=== PATIENT | male | born 1955 | race Caucasian/White ===

== ENCOUNTER 2017-06-15 06:48 | Inpatient (IN) | payer OTHER ==
[~2017-06-15] VITALS: Ht 172.7 cm; Wt 68.9 kg
[2017-06-15 08:19] LABS: HEMOGLOBIN 12.1 g/dL (13.7-18.0); WHITE BLOOD COUNT 4.6 x10^3/uL (3.4-10)
[2017-06-15 08:29] LABS: ASPARTATE AMINO TRANSFERASE 26 U/L (15-37); BLOOD UREA NITROGEN 17 mg/dL (7-18)
[2017-06-15] MEDS ORDERED: PANTOPRAZOLE 80 MG in SODIUM CHLORIDE 0.9% 50 ML IV ONE (08:30)
[2017-06-15] MEDS ORDERED: PANTOPRAZOLE 80 MG in SODIUM CHLORIDE 0.9% 100 ML IV SCH (08:30)
[2017-06-15] MEDS ORDERED: CEFTRIAXONE PMX 1GM/50ML 50 ML IV ONE (11:00)
[2017-06-15] MEDS ORDERED: AZITHROMYCIN 500 MG in SODIUM CHLORIDE 0.9% 250 ML IV ONE (11:00)
[2017-06-15] MEDS ORDERED: ONDANSETRON 2MG/ML, 2ML IVPush PRN (11:30)
[2017-06-15] MEDS ORDERED: morphine SULFATE 10 MG/ML, 1ML IVPush PRN (11:30)
[2017-06-15] MEDS ORDERED: OXYcodone/APAP 5/325MG TABLET PO PRN (11:30)
[2017-06-15] MEDS ORDERED: hydrALAzine 20 MG/ML, 1ML IVPush PRN (11:30)
[2017-06-15] MEDS ORDERED: CEFTRIAXONE PMX 1GM/50ML 50 ML ONE (11:45)
[2017-06-15 12:57] VITALS: BP 115/67
[2017-06-15] MEDS: NICOTINE 14MG/24 HR PATCH.TD24 TD SCH (13:00)
[2017-06-15] MEDS ORDERED: PANTOPRAZOLE 40 MG IV IVPush SCH (13:00)
[2017-06-15] MEDS: DOXYCYCLINE 100MG TABLET PO SCH ×2 (14:35→21:19)
[2017-06-15] MEDS: methylPREDNISolone SOD SUCC 125 MG/2 ML IVPush SCH ×2 (14:35→21:19)
[2017-06-15 20:00] VITALS: BP 133/74
[2017-06-15] MEDS: TEMAZEPAM 15 MG CAPSULE PO PRN (21:19)
[2017-06-15] MEDS: PANTOPRAZOLE 40 MG IV IVPush SCH (21:20)
[2017-06-16] MEDS ORDERED: CEFTRIAXONE PMX 2GM/50ML 50 ML IV SCH
[2017-06-16 02:00] VITALS: BP 124/73
[2017-06-16] MEDS: methylPREDNISolone SOD SUCC 125 MG/2 ML IVPush SCH ×3 (03:57→15:58)
[2017-06-16 05:18] LABS: HEMOGLOBIN 11.2 g/dL (13.7-18.0); WHITE BLOOD COUNT 3.7 x10^3/uL (3.4-10)
[2017-06-16 05:28] LABS: BLOOD UREA NITROGEN 18 mg/dL (7-18)
[2017-06-16 05:36] LABS: ASPARTATE AMINO TRANSFERASE 16 U/L (15-37)
[2017-06-16] MEDS ORDERED: ONDANSETRON 2MG/ML, 2ML ONE (06:49)
[2017-06-16] MEDS ORDERED: KETAMINE 10 MG/ML, 20ML ONE (06:49)
[2017-06-16] MEDS ORDERED: PROPOFOL 10 MG/ML, 20ML ONE (06:49)
[2017-06-16 06:55] VITALS: BP 120/64
[2017-06-16] MEDS ORDERED: ALBUTEROL SULFATE 2.5 MG/3 ML NPPB PRN (08:30)
[2017-06-16] MEDS ORDERED: HYDROmorphone 1 MG/ML, 1ML IV PRN (08:30)
[2017-06-16] MEDS ORDERED: hydrALAzine 20 MG/ML, 1ML IV PRN (08:30)
[2017-06-16] MEDS ORDERED: PROMETHAZINE 25 MG/ML, 1ML IV PRN (08:30)
[2017-06-16] MEDS ORDERED: ONDANSETRON 2MG/ML, 2ML IVPush PRN (08:30)
[2017-06-16] MEDS ORDERED: MIDAZOLAM 1 MG/ML, 2ML IV PRN (08:30)
[2017-06-16] MEDS ORDERED: FENTANYL PF 100 MCG/2ML IV PRN (08:30)
[2017-06-16] MEDS ORDERED: LABETALOL 5MG/ML, 20ML IV PRN (08:30)
[2017-06-16] MEDS ORDERED: OXYcodone 5 MG/5 ML ORAL.SOL UDC PO PRN (08:30)
[2017-06-16] MEDS ORDERED: MEPERIDINE/PF 25MG/0.5ML IVPush PRN (08:30)
[2017-06-16] MEDS: PANTOPRAZOLE 40 MG IV IVPush SCH (09:37)
[2017-06-16] MEDS: DOXYCYCLINE 100MG TABLET PO SCH ×2 (10:14→20:41)
[2017-06-16] MEDS: NICOTINE 14MG/24 HR PATCH.TD24 TD SCH (13:00)
[2017-06-16 13:29] VITALS: BP 122/71
[2017-06-16 20:00] VITALS: BP 126/70
[2017-06-16] MEDS: methylPREDNISolone SOD SUCC 40 MG/ML IVPush SCH (20:41)
[2017-06-16] MEDS: TEMAZEPAM 15 MG CAPSULE PO PRN (20:41)
[2017-06-17] MEDS: methylPREDNISolone SOD SUCC 40 MG/ML IVPush SCH ×4 (02:14→21:09)
[2017-06-17 03:45] VITALS: BP 115/62
[2017-06-17 05:57] LABS: HEMOGLOBIN 10.2 g/dL (13.7-18.0)
[2017-06-17 06:45] VITALS: BP 116/67
[2017-06-17] MEDS: DOXYCYCLINE 100MG TABLET PO SCH ×2 (08:09→21:09)
[2017-06-17] MEDS: PANTOPROZOLE 40MG TABLET PO SCH (08:09)
[2017-06-17] MEDS: NICOTINE 14MG/24 HR PATCH.TD24 TD SCH (13:00)
[2017-06-17] MEDS: CEFTRIAXONE 2,000 MG in DEXTROSE 5% 50 ML IV SCH (13:46)
[2017-06-17 20:00] VITALS: BP 113/65
[2017-06-17] MEDS: TEMAZEPAM 15 MG CAPSULE PO PRN (21:09)
[2017-06-18 02:00] VITALS: BP 110/60
[2017-06-18] MEDS: methylPREDNISolone SOD SUCC 40 MG/ML IVPush SCH ×2 (03:34→08:19)
[2017-06-18] MEDS ORDERED: OMEP-110 PO (07:43)
[2017-06-18] MEDS ORDERED: TRAM50TA2 PO (07:43)
[2017-06-18] MEDS ORDERED: TIOT18CA INH (07:43)
[2017-06-18] MEDS ORDERED: CEFD300C37 PO (07:43)
[2017-06-18] MEDS ORDERED: ALBU18HF INH (07:43)
[2017-06-18] MEDS ORDERED: NICO-486 TD (07:43)
[2017-06-18] MEDS ORDERED: PRED10TA14 PO (07:43)
[2017-06-18] MEDS ORDERED: FLUT1DIS IH (07:43)
[2017-06-18] MEDS ORDERED: MAGN400T26 PO (07:44)
[2017-06-18] MEDS ORDERED: DOXY100C15 PO (07:56)
[2017-06-18] MEDS ORDERED: POTASSIUM PHOSPHATE 44 MEQ in SODIUM CHLORIDE 0.9% 500 ML IV ONE (08:00)
[2017-06-18 08:15] VITALS: BP 110/66
[2017-06-18] MEDS: DOXYCYCLINE 100MG TABLET PO SCH (08:19)
[2017-06-18] MEDS: PANTOPROZOLE 40MG TABLET PO SCH (08:19)
[2017-06-18] MEDS: CEFTRIAXONE 2,000 MG in DEXTROSE 5% 50 ML IV SCH (11:59)
[2017-06-18] MEDS: NICOTINE 14MG/24 HR PATCH.TD24 TD SCH (13:00)
[2017-06-18] MEDS ORDERED: methylPREDNISolone SOD SUCC 125 MG/2 ML IVPush SCH (14:00)
[2017-06-18] MEDS ORDERED: DOCUSATE 100 MG CAPSULE ONE (18:07)
[2017-06-18] MEDS ORDERED: POLYETHYLENE GLYCOL 17 GM PACKET PO ONE (18:30)
[2017-06-18] MEDS ORDERED: DOCUSATE 100 MG CAPSULE PO PRN (18:30)
== END 2017-06-19 05:47 | disposition home or self-care (01) | DRG 441 ==
LOC: ED 07:43 → SUATTDRO 11:08 → EDIP 11:10 → 4EST 12:34
PROVIDERS: ADMIT Internal Medicine; ATTEND Internal Medicine
PROC: 0DJ08ZZ Inspection of Upper Intestinal Tract, Via Natural or Artificial Opening Endoscopic (ICD-10-PCS; principal; 2017-06-16 08:00)
DX: K76.6 Portal hypertension (principal); K29.71 Gastritis, unspecified, with bleeding; J18.9 Pneumonia, unspecified organism; J44.0 Chronic obstructive pulmonary disease with (acute) lower respiratory infection; J44.1 Chronic obstructive pulmonary disease with (acute) exacerbation; D64.9 Anemia, unspecified; F17.210 Nicotine dependence, cigarettes, uncomplicated; K31.89 Other diseases of stomach and duodenum; K44.9 Diaphragmatic hernia without obstruction or gangrene; Z79.899 Other long term (current) drug therapy; Z90.49 Acquired absence of other specified parts of digestive tract; Z83.79 Family history of other diseases of the digestive system
CPT/HCPCS: 36415; 71010; 80053; 82140; 83605; 83735; 84100; 84439; 84443; 85014; 85018; 85025; 85610; 85730; 87040; 93005; 96365; 96367; 96375; J0456; J0696; J2405; J2704; C9113; J2920; J2930; J7040; J7050

== ENCOUNTER 2018-02-24 23:00 | Inpatient (IN) | payer MEDICAID, OTHER ==
[~2018-02-24] VITALS: Ht 172.7 cm; Wt 72.5 kg
[~2018-02-24 23:00] MED LIST: ALBU18HF INH; CEFD300C37 PO; DOXY100C15 PO; FLUT1DIS IH; MAGN400T26 PO; NICO-486 TD; OMEP-110 PO; PRED10TA14 PO; TIOT18CA INH; TRAM50TA2 PO
[2018-02-24 23:32] LABS: BASOPHILS # (AUTO) 0.04 x10^3/uL (0-0.1); BASOPHILS % (AUTO) 1 % (0-1); EOSINOPHILS # (AUTO) 0.14 x10^3/uL (0-0.4); EOSINOPHILS % (AUTO) 2 % (1-7); LYMPHOCYTES % (AUTO) 15 % (22-44); MD NO; MEAN CORPUSCULAR HEMOGLOBIN 25.4 pg (27.5-34.5); MEAN CORPUSCULAR HGB CONC 32.9 g/dL (33.2-36.2); MEAN CORPUSCULAR VOLUME 77.1 fL (81-97); MEAN PLATELET VOLUME 7.6 fL (7.4-10.4); MONOCYTES # (AUTO) 0.86 x10^3/uL (0.2-0.8); MONOCYTES % (AUTO) 11 % (2-9); NEUTROPHILS # (AUTO) 5.42 x10^3/uL (1.8-6.8); NEUTROPHILS % (AUTO) 72 % (42-75); PLATELET COUNT 355 x10^3/uL (130-400); RED BLOOD COUNT 4.36 x10^6/uL (4.38-5.82); RED CELL DISTRIBUTION WIDTH 16.8 % (9.4-14.8)
[2018-02-24 23:48] LABS: INTERNATIONAL NORMALIZED RATIO 0.97 (0.93-1.1)
[2018-02-24 23:55] LABS: ALBUMIN 3.6 g/dL (3.4-5.0); ANION GAP 7 mmol/L (5-15); CALCIUM 8.9 mg/dL (8.5-10.1); CHLORIDE 101 mmol/L (98-107); CREATININE 1.11 mg/dL (0.7-1.3)
[2018-02-24 23:58] LABS: TROPONIN I < 0.015 ng/mL (0.000-0.045)
[2018-02-25] MEDS ORDERED: OMNIPAQUE 350 MG/ML, 100ML BOTTLE ONE (00:18)
[2018-02-25] MEDS ORDERED: DOCUSATE 100 MG CAPSULE PO PRN (01:30)
[2018-02-25] MEDS ORDERED: ENALAPRILAT 1.25 MG/ML, 2ML IVPush PRN (01:30)
[2018-02-25] MEDS ORDERED: BISACODYL 10 MG SUPP PR PRN (01:30)
[2018-02-25] MEDS ORDERED: LABETALOL 5MG/ML, 20ML IVPush PRN (01:30)
[2018-02-25] MEDS ORDERED: POLYETHYLENE GLYCOL 17 GM PACKET PO PRN (01:30)
[2018-02-25] MEDS ORDERED: ONDANSETRON 2MG/ML, 2ML IVPush PRN (01:30)
[2018-02-25] MEDS ORDERED: ACETAMINOPHEN 325 MG TABLET PO PRN (01:30)
[2018-02-25] MEDS ORDERED: ONDANSETRON ODT 4 MG PO PRN (01:30)
[2018-02-25] MEDS ORDERED: morphine SULFATE 10 MG/ML, 1ML IVPush PRN (01:30)
[2018-02-25] MEDS ORDERED: PROMETHAZINE 25 MG/ML, 1ML IM PRN (01:30)
[2018-02-25 01:32] VITALS: BP 125/79
[2018-02-25] MEDS ORDERED: ALBUTEROL/IPRATROPIUM 2.5MG/0.5MG, 3 ML ONE (01:48)
[2018-02-25] MEDS ORDERED: ALBUTEROL/IPRATROPIUM 2.5MG/0.5MG, 3 ML NPPB PRN (02:00)
[2018-02-25] MEDS: methylPREDNISolone SOD SUCC 40 MG/ML IVPush SCH ×4 (02:00→21:03)
[2018-02-25] MEDS: SODIUM CHLORIDE 0.9% 1,000 ML IV SCH ×2 (02:00→15:37)
[2018-02-25] MEDS: HEPARIN 5,000 UNITS/ML, 1ML SQ SCH ×3 (02:01→18:04)
[2018-02-25] MEDS: CEFTRIAXONE 2 GM in SODIUM CHLORIDE 0.9% 50 ML IV SCH (02:11)
[2018-02-25 02:29] LABS: FREE T4 (FREE THYROXINE) 1.07 ng/dL (0.76-1.46); THYROID STIMULATING HORMONE 1.22 mIU/L (0.358-3.740)
[2018-02-25 02:49] LABS: MICROSCOPIC NOT IND
[2018-02-25 02:56] LABS: CULTURE INDICATED? NO
[2018-02-25 03:00] LABS: AMPHETAMINE SCREEN, URINE Negative (Negative); BARBITURATE SCREEN, URINE Negative (Negative); BENZODIAZEPINE SCREEN, URINE Negative (Negative); CANNABINOID SCREEN, URINE Negative (Negative); COCAINE SCREEN, URINE Negative (Negative); METHADONE SCREEN, URINE Negative (Negative); OPIATE SCREEN, URINE Negative (Negative)
[2018-02-25] MEDS: ASPIRIN 325 MG TABLET EC PO SCH (06:06)
[2018-02-25 07:13] VITALS: BP 103/61
[2018-02-25] MEDS: ALBUTEROL/IPRATROPIUM 2.5MG/0.5MG, 3 ML NPPB SCH ×2 (09:00→18:44)
[2018-02-25] MEDS: DOXYCYCLINE 100MG TABLET PO SCH ×2 (09:18→21:03)
[2018-02-25] MEDS ORDERED: OMNIPAQUE 350 MG/ML, 75ML BOTTLE ONE (10:23)
[2018-02-25] MEDS: FLUTICASONE/VILANTEROL 100-25MCG/INH INH SCH (10:32)
[2018-02-25 13:51] VITALS: BP 125/71
[2018-02-25 19:31] VITALS: BP 122/61
[2018-02-26] MEDS: CEFTRIAXONE 2 GM in SODIUM CHLORIDE 0.9% 50 ML IV SCH (01:29)
[2018-02-26] MEDS: HEPARIN 5,000 UNITS/ML, 1ML SQ SCH ×3 (01:29→17:30)
[2018-02-26] MEDS: OXYcodone IR 5MG TABLET PO PRN ×2 (01:36→20:48)
[2018-02-26 02:19] VITALS: BP 120/58
[2018-02-26] MEDS: methylPREDNISolone SOD SUCC 40 MG/ML IVPush SCH ×4 (02:29→20:38)
[2018-02-26] MEDS: ASPIRIN 325 MG TABLET EC PO SCH (05:23)
[2018-02-26 05:58] LABS: BASOPHILS % (AUTO) 0 % (0-1); EOSINOPHILS % (AUTO) 0 % (1-7); LYMPHOCYTES # (AUTO) 0.33 x10^3/uL (1-3.4); LYMPHOCYTES % (AUTO) 6 % (22-44); MD NO; MEAN CORPUSCULAR HEMOGLOBIN 25.1 pg (27.5-34.5); MEAN CORPUSCULAR HGB CONC 32.4 g/dL (33.2-36.2); MEAN CORPUSCULAR VOLUME 77.6 fL (81-97); MEAN PLATELET VOLUME 8.1 fL (7.4-10.4); MONOCYTES # (AUTO) 0.12 x10^3/uL (0.2-0.8); MONOCYTES % (AUTO) 2 % (2-9); NEUTROPHILS # (AUTO) 5.47 x10^3/uL (1.8-6.8); NEUTROPHILS % (AUTO) 92 % (42-75); PLATELET COUNT 306 x10^3/uL (130-400); RED BLOOD COUNT 3.77 x10^6/uL (4.38-5.82); RED CELL DISTRIBUTION WIDTH 16.8 % (9.4-14.8)
[2018-02-26 06:06] LABS: CHLORIDE 107 mmol/L (98-107)
[2018-02-26 06:16] LABS: ALANINE AMINOTRANSFERASE 16 U/L (12-78); ALBUMIN 2.8 g/dL (3.4-5.0); ALKALINE PHOSPHATASE 77 U/L (45-117); ANION GAP 6 mmol/L (5-15); BILIRUBIN,TOTAL 0.4 mg/dL (0.2-1.0); CALCIUM 8.9 mg/dL (8.5-10.1); CHOL/HDL RATIO 3.9; CHOLESTEROL, TOTAL 142 mg/dL (140-239); CREATININE 1.06 mg/dL (0.7-1.3); HDL CHOL % 25 % (26-37); HDL CHOLESTEROL (DIRECT) 36 mg/dL (40-60); LDL CHOLESTEROL,CALCULATED 88 mg/dL (54-169); LDL/HDL RATIO 2.4 (0.5-3.0); TOTAL PROTEIN 7.1 g/dL (6.4-8.2); TRIGLYCERIDES 91 mg/dL (50-200); VLDL CHOLESTEROL 18 mg/dL (0-25)
[2018-02-26] MEDS: ALBUTEROL/IPRATROPIUM 2.5MG/0.5MG, 3 ML NPPB SCH ×2 (06:27→19:09)
[2018-02-26 07:08] VITALS: BP 125/83
[2018-02-26] MEDS: DOXYCYCLINE 100MG TABLET PO SCH ×2 (08:46→20:38)
[2018-02-26] MEDS: FLUTICASONE/VILANTEROL 100-25MCG/INH INH SCH (08:46)
[2018-02-26 13:42] VITALS: BP 116/55
[2018-02-26 19:10] VITALS: BP 120/62
[2018-02-27] MEDS: HEPARIN 5,000 UNITS/ML, 1ML SQ SCH ×2 (01:32→09:30)
[2018-02-27] MEDS: OXYcodone IR 5MG TABLET PO PRN (01:33)
[2018-02-27] MEDS ORDERED: CEFTRIAXONE 2 GM in SODIUM CHLORIDE 0.9% 100 ML IV SCH (02:00)
[2018-02-27 02:24] VITALS: BP 112/60
[2018-02-27] MEDS: methylPREDNISolone SOD SUCC 40 MG/ML IVPush SCH ×2 (03:17→08:32)
[2018-02-27] MEDS: ASPIRIN 325 MG TABLET EC PO SCH (06:28)
[2018-02-27 07:36] VITALS: BP 95/57
[2018-02-27] MEDS: DOXYCYCLINE 100MG TABLET PO SCH (08:32)
[2018-02-27] MEDS: FLUTICASONE/VILANTEROL 100-25MCG/INH INH SCH (08:32)
[2018-02-27] MEDS: ALBUTEROL/IPRATROPIUM 2.5MG/0.5MG, 3 ML NPPB SCH (10:33)
[2018-02-27] MEDS ORDERED: ALBUTEROL/IPRATROPIUM 2.5MG/0.5MG, 3 ML NPPB SCH (11:00)
[2018-02-27] MEDS ORDERED: ALBU18HF INH (12:21)
[2018-02-27] MEDS ORDERED: CEFD300C37 PO (12:21)
[2018-02-27] MEDS ORDERED: PRED5TAB PO (12:21)
[2018-02-27] MEDS ORDERED: TIOT18CA INH (12:21)
[2018-02-27] MEDS ORDERED: FLUT1DIS IH (12:21)
[2018-02-27] MEDS ORDERED: ASPI-621 PO (12:21)
[2018-02-27] MEDS ORDERED: DOXY100T10 PO (12:21)
[2018-02-28] MEDS ORDERED: CEFTRIAXONE 2 GM in SODIUM CHLORIDE 0.9% 50 ML IV SCH (02:00)
== END 2018-02-27 16:26 | disposition home or self-care (01) | DRG 64 ==
LOC: ED 23:59 → EDIP 02-25 00:49 → 4EST 02-25 01:27 → DCLOUNGE 02-27 16:07
PROVIDERS: ADMIT Internal Medicine; ATTEND Internal Medicine
DX: I63.9 Cerebral infarction, unspecified (principal); J18.9 Pneumonia, unspecified organism; J44.1 Chronic obstructive pulmonary disease with (acute) exacerbation; K76.6 Portal hypertension; J44.0 Chronic obstructive pulmonary disease with (acute) lower respiratory infection; K31.9 Disease of stomach and duodenum, unspecified; R04.0 Epistaxis; K44.9 Diaphragmatic hernia without obstruction or gangrene; G89.29 Other chronic pain; D50.9 Iron deficiency anemia, unspecified; Z87.01 Personal history of pneumonia (recurrent); Z86.73 Personal history of transient ischemic attack (TIA), and cerebral infarction without residual deficits; Z87.891 Personal history of nicotine dependence; Z82.5 Family history of asthma and other chronic lower respiratory diseases; Z90.49 Acquired absence of other specified parts of digestive tract; Z79.899 Other long term (current) drug therapy; Z79.1 Long term (current) use of non-steroidal anti-inflammatories (NSAID); Z79.2 Long term (current) use of antibiotics; Z91.018 Allergy to other foods
CPT/HCPCS: 36415; 99285; J7620; 70450; 70496; 70498; 70551; 71045; 71260; 80047; 80048; 80053; 80061; 80307; 81003; 82040; 82728; 83036; 83540; 83550; 83735; 84439; 84443; 84466; 84484; 85025; 85610; 85730; 86480; 93005; 93306; 93880; 94640; J0696; J1644; Q9967; J2920; J7030